=== PATIENT | female | born 1940 | race Caucasian/White ===

== ENCOUNTER 2017-11-02 12:23 | Observation (INO) | payer MEDICARE ==
[~2017-11-02 12:23] MED LIST: (PENDING PHARMACY ID) (Pravastatin Sodium [Pravachol] 40 MG) PO SCH
--- NOTE | 2017-11-02 13:52 | ER Document Report ---
ED Medical Screen (RME) - General Chief Complaint: Leg Pain Stated Complaint: VOMITING Time Seen by Provider: 11/02/17 13:28 TRAVEL OUTSIDE OF THE [place] IN LAST 30 DAYS: No - HPI Notes: 11/02/17 13:48 Patient is a 77-year-old female who presents to ED originally complaining of left posterior buttock pain status post possible injury while she was shoveling snow during last winter. Patient states that she does have soreness with movement, but the pain does not radiate. Patient has not been evaluated for this condition in the past. Patient also complains of waking up this morning when she went to the bathroom having chest pain that radiated around her chest bilaterally with the development of nausea. Patient states that that chest pain has since resolved, but she does continue to have nausea without vomiting. Patient has not had any development of shortness of breath. Patient denies significant cardiac history although she did have a stent placement to her left carotid. Patient states that she did have a negative stress test in the summer. I am concerned about atypical chest symptoms and continued nausea and a 77-year-old female patient with known vascular disease. I have treated and performed a rapid initial assessment of this patient. A comprehensive ED assessment and evaluation of the patient, analysis of test results and completion of medical decision making process will be conducted by additional ED providers. - Related Data Allergies/Adverse Reactions: No Known Allergies Allergy (Verified 11/02/17 13:37) Past Medical History - Social History Chew tobacco use (# tins/day): No Frequency of alcohol use: None Drug Abuse: None - Past Medical History Cardiac Medical History: Reports: Hx Hypercholesterolemia Renal/ Medical History: Denies: Hx Peritoneal Dialysis GI Medical History: Reports: Hx Gastroesophageal Reflux Disease Psychiatric Medical History: Reports: Hx Depression Past Surgical History: Reports: Hx Cholecystectomy, Hx Hysterectomy, Hx Orthopedic Surgery - right ankle - Immunizations Hx Diphtheria, Pertussis, Tetanus Vaccination: Yes Physical Exam - Vital signs Vitals: Temp Pulse Resp BP Pulse Ox 98.2 F 75 16 141/68 H 95 11/02/17 12:31 11/02/17 12:31 11/02/17 12:31 11/02/17 12:31 11/02/17 12:31 - Respiratory Respiratory status: No respiratory distress Chest status: Nontender Breath sounds: Normal - Cardiovascular Rhythm: Regular Heart sounds: Normal auscultation Course - Vital Signs Vital signs: Temp Pulse Resp BP Pulse Ox 98.2 F 75 16 141/68 H 95 11/02/17 12:31 11/02/17 12:31 11/02/17 12:31 11/02/17 12:31 11/02/17 12:31
--- NOTE | 2017-11-02 14:24 | ER Document Report ---
ED General - General Mode of Arrival: Ambulatory Information source: Patient TRAVEL OUTSIDE OF THE [place] IN LAST 30 DAYS: No <VIDAL MATTHEW - Last Filed: 11/02/17 15:41> <WILBERTO MAX - Last Filed: 11/04/17 23:04> - General Chief Complaint: Leg Pain Stated Complaint: VOMITING Time Seen by Provider: 11/02/17 13:28 Notes: Patient is a 77-year-old female with a history of carotid stents presents to the emergency department originally complaining of left posterior buttock pain onset 2 weeks ago. Patient states that she was shoveling snow 2 weeks ago when she noticed the pain the next morning. Patient denies any injury to that area. Patient also complains of nausea and chest pressure onset around 0300 this morning. Patient states that she noticed the pain while she was lying in bed and stated the pressure radiates to her neck and jaw. Patient states the pain lasted for around 5 minutes. At bedside patient states she does not have any nausea. Patient states she had a negative stress test around 6 months ago. Patient denies abdominal pain, shortness of breath, or vomiting. (VIDAL MATTHEW) - Related Data Allergies/Adverse Reactions: No Known Allergies Allergy (Verified 11/02/17 14:44) Past Medical History - General Information source: Patient - Social History Smoking Status: Unknown if Ever Smoked Chew tobacco use (# tins/day): No Frequency of alcohol use: None Drug Abuse: None Family History: Reviewed & Not Pertinent Patient has suicidal ideation: No Patient has homicidal ideation: No - Past Medical History Cardiac Medical History: Reports: Hx Hypercholesterolemia GI Medical History: Reports: Hx Gastroesophageal Reflux Disease Psychiatric Medical History: Reports: Hx Depression Past Surgical History: Reports: Hx Cholecystectomy, Hx Hysterectomy, Hx Orthopedic Surgery - right ankle - Immunizations Hx Diphtheria, Pertussis, Tetanus Vaccination: Yes <VIDAL MATTHEW - Last Filed: 11/02/17 15:41> Review of Systems - Review of Systems Constitutional: No symptoms reported EENT: No symptoms reported Cardiovascular: See HPI, Chest pain Respiratory: No symptoms reported Gastrointestinal: See HPI Genitourinary: No symptoms reported Female Genitourinary: No symptoms reported Musculoskeletal: See HPI Skin: No symptoms reported Hematologic/Lymphatic: No symptoms reported Neurological/Psychological: No symptoms reported -: Yes All other systems reviewed and negative <VIDAL MATTHEW - Last Filed: 11/02/17 15:41> Physical Exam <VIDAL MATTHEW - Last Filed: 11/02/17 15:41> <WILBERTO MAX - Last Filed: 11/04/17 23:04> - Vital signs Vitals: Temp Pulse Resp BP Pulse Ox 98.2 F 75 16 141/68 H 95 11/02/17 12:31 11/02/17 12:31 11/02/17 12:31 11/02/17 12:31 11/02/17 12:31 - Notes Notes: GENERAL: Alert, interacts well. No acute distress. HEAD: Normocephalic, atraumatic. EYES: Pupils equal, round, and reactive to light. Extraocular movements intact. ENT: Oral mucosa moist, tongue midline. NECK: Full range of motion. Supple. Trachea midline. LUNGS: Clear to auscultation bilaterally, no wheezes, rales, or rhonchi. No respiratory distress. HEART: Regular rate and rhythm. Faint systolic murmur. NO gallops, or rubs. ABDOMEN: Soft, non-tender. Non-distended. Bowel sounds present in all 4 quadrants. EXTREMITIES: Moves all 4 extremities spontaneously. NEUROLOGICAL: Alert and oriented x3. Normal speech. PSYCH: Normal affect, normal mood. SKIN: Warm, dry, normal turgor. No rashes or lesions noted. (VIDAL MATTHEW) Course - Laboratory Result Diagrams: 11/02/17 14:25 11/02/17 14:25 - Consults Dr. Varela Time consulted: 15:15 - Dr. Grove accepts patient for admission to telemetry. <VIDAL MATTHEW - Last Filed: 11/02/17 15:41> - Laboratory Result Diagrams: 11/02/17 14:25 11/02/17 14:25 - EKG Interpretation by Ma EKG shows normal: Sinus rhythm Rate: Normal Rhythm: NSR [place]/QRS: Right axis deviation When compared to previous EKG there are: No significant change <WILBERTO MAX - Last Filed: 11/04/17 23:04> - Re-evaluation Re-evalutation: 11/02/17 15:19 Initial workup negative no changes on EKG from 2013 although patient does have T -wave inversion in septal leads that were present from 2013. Due to the patient 's history and risk factors will be admitted for further observation and workup (WILBERTO MAX) - Vital Signs Vital signs: Temp Pulse Resp BP Pulse Ox 97.5 F 77 18 120/68 95 11/03/17 11:16 11/03/17 11:16 11/03/17 11:16 11/03/17 11:16 11/03/17 11:16 - Laboratory Laboratory results interpreted by me: 11/02/17 11/02/17 14:25 15:10 NT-Pro-B Natriuret Pep 839 H Urine Ketones TRACE H - EKG Interpretation by Ma Additional EKG results interpreted by in: 11/02/17 15:20 T-wave inversions in aVF V2 V4 V5 presents from 2013 (WILBERTO MAX) Discharge - Discharge Admitting Provider: Dr. Varela Unit Admitted: Telemetry <VIDAL MATTHEW - Last Filed: 11/02/17 15:41> <WILBERTO MAX - Last Filed: 11/04/17 23:04> - Discharge Clinical Impression: Chest pain Qualifiers: Chest pain type: unspecified Qualified Code(s): R07.9 - Chest pain, unspecified Condition: Fair Disposition: ADMITTED INPATIENT Scribe Attestation: 11/04/17 23:04 I personally performed the services described documentation, reviewed and edited the documentation which was dictated to describe my presence, and it accurately records my words and actions. (WILBERTO MAX) Scribe Documentation - Scribe Written by Dyana:: Dyana Farooq, 11/02/2017 14:31 acting as scribe for :: Kalin <VIDAL MATTHEW - Last Filed: 11/02/17 15:41>
[2017-11-02 14:42] LABS: ABSOLUTE BASOPHILS # (AUTO) 0.1 10^3/uL (0.0-0.2); ABSOLUTE EOSINOPHILS # (AUTO) 0.1 10^3/uL (0.0-0.6); ABSOLUTE MONOCYTES (AUTO) 0.6 10^3/uL (0.1-1.4); BASOPHILS % (AUTO) 0.7 % (0-2); EOSINOPHILS % (AUTO) 1.3 % (0-6); HEMATOCRIT 38.1 % (36.0-47.0); HEMOGLOBIN 13.5 g/dL (12.0-15.5); LYMPHOCYTES % (AUTO) 23.2 % (13-45); MEAN CORPUSCULAR HGB CONC 35.4 g/dL (32.0-36.0); MEAN CORPUSCULAR VOLUME 85 fl (80-97); MONOCYTES % (AUTO) 6.8 % (3-13); PLATELET COUNT 199 10^3/uL (150-450); RED BLOOD COUNT 4.49 10^6/uL (3.72-5.28); RED CELL DISTRIBUTION WIDTH 13.2 % (11.5-14.0); TOTAL CELLS COUNTED % (AUTO) 100 %; WHITE BLOOD COUNT 8.8 10^3/uL (4.0-10.5)
[2017-11-02 15:02] LABS: ALANINE AMINOTRANSFERASE 15 U/L (9-52); ALBUMIN 4.4 g/dL (3.5-5.0); ALKALINE PHOSPHATASE 70 U/L (38-126); ANION GAP 10 (5-19); ASPARTATE AMINO TRANSFERASE 19 U/L (14-36); BILIRUBIN,DIRECT 0.2 mg/dL (0.0-0.4); BILIRUBIN,TOTAL 0.8 mg/dL (0.2-1.3); BLOOD UREA NITROGEN 16 mg/dL (7-20); CALCIUM 10.1 mg/dL (8.4-10.2); CARBON DIOXIDE 26 mmol/L (22-30); CHLORIDE 106 mmol/L (98-107); GLUCOSE 87 mg/dL (75-110); MAGNESIUM 1.9 mg/dL (1.6-2.3); POTASSIUM 3.8 mmol/L (3.6-5.0); SODIUM 141.8 mmol/L (137-145); TOTAL PROTEIN 7.2 g/dL (6.3-8.2)
--- NOTE | 2017-11-02 15:02 | RADIOLOGY REPORT (SQ) ---
EXAM DESCRIPTION: CHEST SINGLE VIEW COMPLETED DATE/TIME: 11/02/2017 2:53 pm REASON FOR STUDY: nausea, episode of chest pain COMPARISON: Chest x-ray 07/26/2014. EXAM PARAMETERS: NUMBER OF VIEWS: One view. TECHNIQUE: Single frontal radiographic view of the chest acquired. RADIATION DOSE: NA LIMITATIONS: None. FINDINGS: LUNGS AND PLEURA: No consolidation, pneumothorax or pleural effusion. MEDIASTINUM AND HILAR STRUCTURES: No masses. Contour normal. HEART AND VASCULAR STRUCTURES: Heart normal in size. Normal vasculature. BONES: No acute findings. HARDWARE: There is a left-sided pacemaker. IMPRESSION: No acute radiographic finding in the chest. TECHNICAL DOCUMENTATION: JOB ID: [id number] 2010 [employer]- All Rights Reserved
--- NOTE | 2017-11-02 15:05 | RADIOLOGY REPORT (SQ) ---
EXAM DESCRIPTION: HIP LEFT AP/LATERAL COMPLETED DATE/TIME: 11/02/2017 2:53 pm REASON FOR STUDY: left posterior buttock pain COMPARISON: None. NUMBER OF VIEWS: Two views. TECHNIQUE: AP pelvis and additional frog-leg view of the left hip. LIMITATIONS: None. FINDINGS: There is no acute fracture or dislocation. The pelvic ring is intact. Mild degenerative changes are seen at the bilateral hip joints. Degenerative changes also noted within the visualized lower lumbar spine and at the bilateral sacroiliac joints. IMPRESSION: No radiographic evidence of acute fracture. Mild degenerative changes at the bilateral hips. TECHNICAL DOCUMENTATION: JOB ID: [id number] 2010 [employer]- All Rights Reserved
[2017-11-02 15:12] LABS: NT PRO BNP 839 pg/mL (<450); TROPONIN I < 0.012 ng/mL
[2017-11-02 15:21] LABS: APPEARANCE,URINE CLEAR; BILIRUBIN,URINE NEGATIVE (NEGATIVE); COLOR,URINE STRAW; GLUCOSE, URINE NEGATIVE (NEGATIVE); KETONES,URINE TRACE mg/dL (NEGATIVE); LEUKOCYTE ESTERASE,URINE NEGATIVE (NEGATIVE); NITRITE,URINE NEGATIVE (NEGATIVE); PROTEIN,URINE NEGATIVE (NEGATIVE); URINE SPECIFIC GRAVITY 1.003; UROBILINOGEN,URINE NEGATIVE mg/dL (<2.0)
[2017-11-02] MEDS ORDERED: ASPIRIN 81 MG TABLET, CHEWABLE PO ONE (15:25)
[2017-11-02] MEDS ORDERED: FENTANYL CITRATE INJ/PF 100 MCG/2 ML AMPUL IV ONE (15:26)
[2017-11-02] MEDS ORDERED: OXYCODONE-ACETAMINOPHEN 5-325 MG TABLET PO PRN (16:30)
[2017-11-02] MEDS ORDERED: ONDANSETRON 4 MG TAB.RAPDIS PO PRN (16:30)
[2017-11-02] MEDS ORDERED: TEMAZEPAM 7.5 MG CAPSULE PO PRN (16:30)
--- NOTE | 2017-11-02 16:30 | PDOC H&P ---
History of Present Illness Admission Date/PCP: 11/02/17 16:00 Patient complains of: Chest pain History of Present Illness: MARGIE TRINH is a 77 year old female. She woke up last evening with nausea. She went to the bathroom. She did not vomit. She came back from the bathroom she had substernal chest pressure. The pain radiated across her chest and back. Essentially, it was in the distribution of a bra strap. The pain was described as a constant dull ache. The pain lasted 5 minutes. It resolved spontaneously as she was able to go to sleep without any intervention. However , the pain did radiate to her teeth and jaw. The pain has not recurred but she has been nauseated this morning. In the emergency department her first troponin is negative. ProBNP is elevated. Her EKG demonstrates inverted T waves. She actually came into the emergency department today also secondary to hip pain which has been aggravated by shoveling her sisters walkway. Past Medical History Cardiac Medical History: Reports: Hyperlipidema, Peripheral Vascular Disease GI Medical History: Reports: Gastroesophageal Reflux Disease Psychiatric Medical History: Reports: Depression Past Surgical History Past Surgical History: Reports: Carotid Endarterectomy - Stent to left carotid artery, Cholecystectomy, Hysterectomy, Orthopedic Surgery - right ankle, Pacemaker Social History Smoking Status: Unknown if Ever Smoked - Advance Directive Resuscitation Status: Full Code Surrogate healthcare decision maker:: At this time the patient has requested her nephew to be her decision maker. His name is Fiordaliza jarrett. He can be reached at [phone]. Family History Family History: Reviewed & Not Pertinent Parental Family History Reviewed: Yes - Hypertension, maternal grandmother had colon cancer in her 60s Children Family History Reviewed: Yes Sibling(s) Family History Reviewed.: Yes Medication/Allergy Home Medications: Aspirin [Aspirin 81 mg Chewable Tablet] 81 mg PO DAILY 07/26/14 Azithromycin [Zithromax 250 mg Tablet] 250 mg PO DAILY #4 tablet 07/26/14 Celecoxib [Celebrex 200 mg Capsule] 200 mg PO Q12 07/26/14 Folic Acid 0.4 mg PO DAILY 07/26/14 Meclizine HCl [Antivert 25 mg Tablet] 25 mg PO TID PRN 07/26/14 Omeprazole 40 mg PO DAILY 07/26/14 Pravastatin Sodium [Pravachol] 40 mg PO DAILY 07/26/14 Prednisone [Deltasone 20 mg Tablet] 3 tab PO DAILY 5 Days tablet 07/26/14 Vitamin B Complex [B Complete] 1 each PO DAILY 07/26/14 Allergies/Adverse Reactions: No Known Allergies Allergy (Verified 11/02/17 14:44) Review of Systems Constitutional: ABSENT: chills, fever(s), headache(s), weight gain, weight loss Eyes: ABSENT: visual disturbances Ears: ABSENT: hearing changes Nose, Mouth, and Throat: ABSENT: as per HPI, headache(s), mouth pain, sore throat, vertigo, other Breasts: ABSENT: as per HPI, other Cardiovascular: PRESENT: chest pain Respiratory: ABSENT: cough, hemoptysis Gastrointestinal: ABSENT: abdominal pain, constipation, diarrhea, hematemesis, hematochezia, nausea, vomiting Genitourinary: ABSENT: dysuria, hematuria Integumentary: ABSENT: rash, wounds Neurological: ABSENT: abnormal gait, abnormal speech, confusion, dizziness, focal weakness, syncope Psychiatric: ABSENT: anxiety, depression, homidical ideation, suicidal ideation Endocrine: ABSENT: cold intolerance, heat intolerance, polydipsia, polyuria Hematologic/Lymphatic: ABSENT: easy bleeding, easy bruising Allergic/Immunologic: ABSENT: as per HPI, seasonal rhinorrhea, other Physical Exam Vital Signs: Temp Pulse Resp BP Pulse Ox 98.2 F 75 16 141/68 H 95 11/02/17 12:31 11/02/17 12:31 11/02/17 12:31 11/02/17 12:31 11/02/17 12:31 Additional comments: The patient appears to be very healthy for her age. She appears to be quite spry. Her cognition and mentation are normal. Neurologically, her exam is normal. Her facial appearance is unremarkable. Her lungs are clear to auscultation bilaterally. Her cardiac exam is regular without murmurs, gallops or rubs. The abdomen is soft and flat. Bowel sounds are present. There is no guarding or rebound noted and there are no hernias or masses present. The lower extremities are without edema. The skin is warm, dry and intact without lesions or rashes. The left hip does not demonstrate any pinpoint tenderness over the greater trochanter. In fact, I could not elicit the pain that she is experiencing. She has full range of motion of the hip. Results Impressions: Chest X-Ray 11/02/17 13:47 IMPRESSION: No acute radiographic finding in the chest. Hip X-Ray 11/02/17 13:48 IMPRESSION: No radiographic evidence of acute fracture. Mild degenerative changes at the bilateral hips. Assessment & Plan - Diagnosis (1) Chest pain Qualifiers: Chest pain type: unspecified Qualified Code(s): R07.9 - Chest pain, unspecified Is this a current diagnosis for this admission?: Yes Plan: This is unlikely to be cardiac chest pain. However, the patient does have some inverted T waves on EKG. She also has a history of cerebrovascular disease. She will be admitted to observation for rule out protocol. If this is negative I will order a stress test. (2) Left hip pain Is this a current diagnosis for this admission?: Yes Plan: This appears to be due to osteoarthritis. Will continue medical management with nonsteroidal anti-inflammatory drugs. The use of nonsteroidal anti- inflammatory drugs does place the vision at risk for coronary disease. - Time Time Spent: 30 to 50 Minutes - Inpatient Certification Medical Necessity: Need Close Monitoring Due to Risk of Patient Decompensation, Need For Continuous Telemetry Monitoring
[2017-11-02] MEDS ORDERED: NITROGLYCERIN 0.4 MG/TAB 25 TAB/BOTTLE SL PRN (16:37)
[2017-11-02] MEDS ORDERED: FOLIC ACID 1 MG TABLET PO ONE (17:30)
[2017-11-02 17:47] LABS: CREATINE KINASE MB 0.59 ng/mL (<4.55); TROPONIN I < 0.012 ng/mL
--- NOTE | 2017-11-02 18:19 | EKG REPORT ---
SEVERITY:- ABNORMAL ECG - SINUS RHYTHM NONSPECIFIC INTRAVENTRICULAR CONDUCTION DELAY DIFFUSE T INVERSIONS. : Confirmed by: Dieter Albrecht MD 02-Nov-2017 18:18:22
[2017-11-02] MEDS ORDERED: CELECOXIB 200 MG CAPSULE PO SCH (22:00)
[2017-11-02] MEDS ORDERED: ATORVASTATIN CALCIUM 10 MG TABLET PO SCH (22:00)
[2017-11-02] MEDS: FAMOTIDINE 20 MG TABLET PO SCH (22:29)
[2017-11-02] MEDS ORDERED: CELECOXIB 200 MG CAPSULE PO ONE (23:00)
[2017-11-02] MEDS ORDERED: FLUOXETINE HCL 20 MG CAPSULE PO ONE (23:04)
[2017-11-02] MEDS ORDERED: BUPROPION HCL 100 MG TABLET PO ONE (23:05)
[2017-11-02 23:09] LABS: TROPONIN I < 0.012 ng/mL
[2017-11-02] MEDS ORDERED: BUPROPION HCL 75 MG TABLET ONE (23:15)
[2017-11-03 04:35] LABS: CREATINE KINASE MB 0.41 ng/mL (<4.55)
[2017-11-03 04:44] LABS: TROPONIN I < 0.012 ng/mL
[2017-11-03] MEDS ORDERED: LANSOPRAZOLE 30 MG TAB.RAP.DR PO SCH (06:00)
[2017-11-03] MEDS ORDERED: GLUCAGON,HUMAN RECOMB 1 MG INJ SUBCUT PRN (06:47)
[2017-11-03] MEDS ORDERED: DEXTROSE 50%-WATER 25 GM/50 ML DISP.SYRIN IV PRN ×2 (06:47)
[2017-11-03] MEDS ORDERED: DEXTROSE 40% GEL 15 GM TUBE PO PRN ×2 (06:47)
--- NOTE | 2017-11-03 07:48 | EKG REPORT ---
SEVERITY:- ABNORMAL ECG - SINUS RHYTHM FIRST DEGREE AV BLOCK NONSPECIFIC INTRAVENTRICULAR CONDUCTION DELAY NONSPECIFIC ST-T CHANGES- IDIFFUSE LEADS : Confirmed by: Dieter Albrecht MD 03-Nov-2017 07:47:17
[2017-11-03] MEDS ORDERED: ASPIRIN 81 MG TABLET, CHEWABLE PO SCH (10:00)
[2017-11-03] MEDS ORDERED: VITAMIN B COMPLEX PO SCH (10:00)
[2017-11-03] MEDS ORDERED: (PENDING PHARMACY ID) (Folic Acid [Folic Acid] 0.4 MG) PO SCH (10:00)
[2017-11-03] MEDS ORDERED: MULTIVIT-STRESS FORMULA/ZINC TABLET PO SCH (10:00)
[2017-11-03] MEDS ORDERED: FOLIC ACID 1 MG TABLET PO SCH (10:00)
[2017-11-03] MEDS: FAMOTIDINE 20 MG TABLET PO SCH (10:43)
--- NOTE | 2017-11-03 11:02 | PDOC DISCHARGE SUMMARY ---
General - Admit/Disc Date/PCP Admission Date/Primary Care Provider: 11/02/17 16:00 Discharge Date: 11/03/17 - Discharge Diagnosis (1) Chest pain Is this a current diagnosis for this admission?: Yes (2) Left hip pain Is this a current diagnosis for this admission?: Yes - Additional Information Resuscitation Status: Full Code Discharge Diet: Cardiac Discharge Activity: Balance Activity w/Rest Prescriptions: Nitroglycerin [Nitrostat 0.4 mg (1/150 Gr) Tabs 25/Bottle] 1 tab SL Q5MP PRN 30 Days #20 bottle PRN Reason: Home Medications: Acetaminophen [Tylenol Extra Strength 500 mg Tablet] 500 mg PO DAILYP PRN Aspirin [Ecotrin 81 mg EC Tablet] 81 mg PO DAILY 11/02/17 Bupropion HCl [Wellbutrin Xl 150 mg 24hr Tablet] 150 mg PO DAILY 11/02/17 Celecoxib [Celebrex] 200 mg PO DAILY 11/02/17 Cholecalciferol (Vitamin D3) [Vitamin D3] 1,000 unit PO DAILY 11/02/17 Cyanocobalamin (Vitamin B-12) [Vitamin B-12 1000 mcg Tablet] 1,000 mcg PO DAILY 11/02/17 Fluoxetine HCl [Prozac 20 mg Capsule] 20 mg PO DAILY 11/02/17 Folic Acid 0.8 mg PO DAILY 11/02/17 Omeprazole 40 mg PO DAILY 11/02/17 Pravastatin Sodium 40 mg PO DAILY 11/02/17 Ropinirole HCl [Requip] 1 mg PO TID 11/02/17 Turmeric/Turmeric Root Extract [Turmeric 500 mg Capsule] 1 each PO DAILY Multivit-Stress Formula/Zinc [Zbec Tablet] 1 tab PO DAILY tablet 11/03/17 Nitroglycerin [Nitrostat 0.4 mg (1/150 Gr) Tabs 25/Bottle] 1 tab SL Q5MP PRN 30 Days #20 bottle 11/03/17 History of Present Illness History of Present Illness: MARGIE TRINH is a 77 year old female. She woke up last evening with nausea. She went to the bathroom. She did not vomit. She came back from the bathroom she had substernal chest pressure. The pain radiated across her chest and back. Essentially, it was in the distribution of a bra strap. The pain was described as a constant dull ache. The pain lasted 5 minutes. It resolved spontaneously as she was able to go to sleep without any intervention. However , the pain did radiate to her teeth and jaw. The pain has not recurred but she has been nauseated this morning. In the emergency department her first troponin is negative. ProBNP is elevated. Her EKG demonstrates inverted T waves. She actually came into the emergency department today also secondary to hip pain which has been aggravated by shoveling her sisters walkway. Hospital Course Hospital Course: Patient actually came into the emergency department with a chief complaint of left hip pain. She has been taking Celebrex but this has been ineffective. She has underlying osteoarthritis of the left hip and this was aggravated recently when she was shoveling her sisters walkway. She feels that she needs additional therapy. During the interview she mentioned that she had substernal chest pain that lasted for 5 minutes. The pain radiated to her jaw and neck. However, this morning she tells me that the pain is not atypical for her. She frequently has similar types of chest pains and she recently had a stress test. Therefore, I called her technical support representative in [place]. Most recently she had a stress test in March 2017. This was a normal Cardiolite stress test with an ejection fraction of 60%. The patient ruled out by cardiac enzymes. Due to the fact that she has similar symptoms and they have not increased in intensity or frequency I feel that the nature of her pain is musculoskeletal in origin. I did ask the patient to call her primary care physician in [place] to obtain a prescription for a narcotic that he or she feels is appropriate. I do not feel that the patient warrants additional observation or additional cardiac evaluation at this time. She will therefore be discharged at this time. At the time of discharge the patient had not yet heard back from her physician's office in [place]. Therefore, I did give her a prescription for tramadol 50 mg 1 tablet every 6 hours as needed for pain. Number of pills dispensed #12 with no refills. Physical Exam Vital Signs: Temp Pulse Resp BP Pulse Ox 98.2 F 75 17 153/83 H 95 11/02/17 12:31 11/02/17 12:31 11/03/17 06:01 11/03/17 06:01 11/03/17 06:01 Additional comments: The patient is a delightful and very healthy appearing 77-year-old female. Her cognition and mentation are normal. She was not in any distress this morning. She was able to ambulate and go to the bathroom on her own without any difficulty. Her facial appearance is unremarkable. Her lungs are clear to auscultation bilaterally. Her cardiac exam is regular without murmurs, gallops or rubs. The abdomen is soft, flat and benign with normal active bowel sounds. The patient's lower extremities do not demonstrate any edema. The skin is warm, dry and intact without lesions or rashes. Results Laboratory Results: 11/02/17 11/02/17 11/02/17 17:06 17:06 22:20 Creatine Kinase 47 50 CK-MB (CK-2) 0.59 Troponin I < 0.012 11/02/17 11/03/17 11/03/17 22:20 03:55 03:55 Creatine Kinase 43 CK-MB (CK-2) 0.50 0.41 Troponin I < 0.012 < 0.012 Impressions: Chest X-Ray 11/02/17 13:47 IMPRESSION: No acute radiographic finding in the chest. Hip X-Ray 11/02/17 13:48 IMPRESSION: No radiographic evidence of acute fracture. Mild degenerative changes at the bilateral hips. Plan Discharge Plan: Discharge. The patient was instructed to follow-up with her technical support representative Dr. Grandaos when she returns to [place]. Time Spent: Less than 30 Minutes
[2017-11-03 11:17] VITALS: BP 120/68
== END 2017-11-03 10:42 | disposition home or self-care (01) ==
LOC: ER 12:23 → INTOOBSV 16:00 → EH 16:00
PROVIDERS: ADMIT Internal Medicine Pulmonary Disease; ATTEND Internal Medicine Pulmonary Disease
DX: R07.89 Other chest pain (principal); M25.552 Pain in left hip; R11.0 Nausea; M16.12 Unilateral primary osteoarthritis, left hip; I73.9 Peripheral vascular disease, unspecified; K08.89 Other specified disorders of teeth and supporting structures; R68.84 Jaw pain; E78.5 Hyperlipidemia, unspecified; K21.9 Gastro-esophageal reflux disease without esophagitis; Z79.899 Other long term (current) drug therapy; Z79.82 Long term (current) use of aspirin; Z90.49 Acquired absence of other specified parts of digestive tract; Z90.710 Acquired absence of both cervix and uterus; Z95.5 Presence of coronary angioplasty implant and graft; Z95.0 Presence of cardiac pacemaker; Z82.49 Family history of ischemic heart disease and other diseases of the circulatory system; Z79.1 Long term (current) use of non-steroidal anti-inflammatories (NSAID); Z79.52 Long term (current) use of systemic steroids
CPT/HCPCS: 93005 ×2; 99285; 36415 ×2; 82553 ×2; 82550 ×2; 83735; 85025; 80053; 81001; 84484 ×2; 83880; 71045; 73502; 93010 ×2; G0378 ×2; A9270 ×10; J3490